=== PATIENT | male | born 1955 | race Caucasian/White ===

== ENCOUNTER 2024-02-27 01:19 | Emergency (ER) | payer OTHER ==
[2024-02-27] MEDS ORDERED: Morphine 4 MG/ML VIAL ONE (02:03)
[2024-02-27] MEDS ORDERED: Ondansetron PF 4 MG/2 ML Vial ONE (02:03)
[2024-02-27 02:31] LABS: #Basophils 0.04 10x3/uL (0.0-0.2); %Basophils 0.4 % (0.0-1.0); %Eosinophils 1.5 % (0.0-10.0); %Lymphocytes 20.6 % (21.0-51.0); %Monocytes 8.4 % (0.0-10.0); %Neutrophils 68.8 % (42.0-75.0); Hematocrit 35.3 % (42.0-52.0); Hemoglobin 12.3 g/dL (14.0-18.0); Mean Corpuscular HGB CONC 34.8 g/dL (32.0-36.0); Mean Corpuscular Volume 88.9 fL (78.0-98.0); Mean Platelet Volume 10.2 fL (7.4-10.4); Platelet Count 225 10x3/uL (130-400); RBC Distribution Width 14.2 % (11.5-14.5); Red Blood Cell (RBC) Count 3.97 mill/uL (4.70-6.10)
[2024-02-27] MEDS ORDERED: Lidocaine 2% 6 ML (Jelly) SYR ONE (02:34)
[2024-02-27 02:52] LABS: PTT 29.6 sec (22.9-36.1); Prothrombin Time 13.5 sec (12.0-14.7)
[2024-02-27 02:56] LABS: ALT (SGPT) 16 U/L (8-55); AST (SGOT) 23 U/L (5-34); Albumin 3.4 g/dL (3.4-4.8); Alkaline Phosphatase 68 U/L (40-110); Anion Gap 15 mmol/L (10-20); BUN (Urea Nitrogen) 19 mg/dL (8.4-25.7); Bilirubin, Total 0.7 mg/dL (0.2-1.2); Calc. Creatinine Clearance 0 mL/min (70-130); Calcium 8.8 mg/dL (7.8-10.44); Carbon Dioxide 19 mmol/L (23-31); Chloride 102 mmol/L (98-107); Estimated GFR 76; Globulin 3.5 g/dL (2.4-3.5); Glucose 95 mg/dL (80-115); Potassium 3.3 mmol/L (3.5-5.1); Protein, Total 6.9 g/dL (5.8-8.1); Sodium 133 mmol/L (136-145)
[2024-02-27 04:04] LABS: Bilirubin Negative (Negative); Blood, Urine 3+ (Negative); CAUTI Indications for Culture Acute Hematuria; Clarity Clear (Clear); Glucose, Urine (Dipstick) Normal (Negative); Ketone, Urine Negative (Negative); Leukocyte 75 Leu/uL (Negative); Nitrite Negative (Negative); Protein, Urine (Dipstick) 50 mg/dL (Neg-Trace); Squamous Epithelial None Seen HPF (0-3); Urobilinogen Normal mg/dL (Less than 2)
[2024-02-27 04:08] LABS: Bacteria/HPF 1+ HPF (None Seen); Specific Gravity, Urine 1.004 (1.002-1.036)
[2024-02-27 04:09] LABS: Urine Culture Reflex No No
== END 2024-02-27 04:34 ==
LOC: ERS 01:19
DX: R31.9 Hematuria, unspecified (principal); E11.9 Type 2 diabetes mellitus without complications; I10 Essential (primary) hypertension
CPT/HCPCS: 36415; 51702; 80053; 81001; 85025; 85610; 85730; 96374; 96375; J2272; J2405

== ENCOUNTER 2024-04-12 17:13 | Inpatient (IN) | payer OTHER ==
[2024-04-12 17:48] VITALS: BMI 25.2
[2024-04-12] MEDS ORDERED: Acetaminophen 650 MG Suppository PR PRN (18:01)
[2024-04-12] MEDS ORDERED: Acetaminophen 325 MG TAB PO PRN (18:01)
[2024-04-12] MEDS ORDERED: Ondansetron ODT 4 MG TAB PO PRN (18:01)
[2024-04-12] MEDS ORDERED: Ketorolac Tromethamine 30 MG (1 mL) VIAL IVP PRN (18:01)
[2024-04-12] MEDS ORDERED: Ondansetron PF 4 MG/2 ML Vial IVP PRN (18:01)
[2024-04-12] MEDS ORDERED: Albuterol 200 PUFF (6.7GM INHALER) INH PRN (18:55)
[2024-04-12] MEDS ORDERED: Nitroglycerin 0.4 MG TAB (25 Tab Bottle) SL PRN (18:55)
[2024-04-12] MEDS ORDERED: Preparation H Ointment 28 GM TUBE TOP PRN (19:09)
[2024-04-12] MEDS ORDERED: Electrolyte Replacement Protocol FS SCH (19:45)
[2024-04-12] MEDS: DULoxetine 60 MG CAP PO SCH (20:09)
[2024-04-12] MEDS: Famotidine 20 MG TAB PO SCH (20:09)
[2024-04-12] MEDS: Divalproex Sodium DR 500 MG TAB PO SCH (20:09)
[2024-04-12] MEDS: Ketorolac Tromethamine 30 MG (1 mL) VIAL IVP SCH (20:10)
[2024-04-12] MEDS: Atorvastatin Calcium 40 MG TAB PO SCH (20:10)
[2024-04-12] MEDS: Sodium Chloride 0.9% 1,000 ML IV SCH (20:11)
[2024-04-12] MEDS ORDERED: LANOLIN TOP SCH (21:00)
[2024-04-12] MEDS ORDERED: MINERAL OIL TOP SCH (21:00)
[2024-04-12] MEDS: Morphine 2 MG/ML VIAL SLOW IVP PRN (22:19)
[2024-04-12] MEDS: Triamcinolone 0.1% Cream 15 GM TUBE TOP SCH (22:54)
[2024-04-13] MEDS: traMADol HCl 50 MG TAB PO PRN (03:07)
[2024-04-13 05:41] LABS: #Basophils 0.04 10x3/uL (0.0-0.2); %Basophils 0.3 % (0.0-1.0); %Eosinophils 1.2 % (0.0-10.0); %Lymphocytes 10.4 % (21.0-51.0); %Monocytes 7.7 % (0.0-10.0); %Neutrophils 79.4 % (42.0-75.0); Hematocrit 32.5 % (42.0-52.0); Hemoglobin 10.7 g/dL (14.0-18.0); Mean Corpuscular HGB CONC 32.9 g/dL (32.0-36.0); Mean Corpuscular Hemoglobin 30.6 pg (27.0-31.0); Mean Corpuscular Volume 92.9 fL (78.0-98.0); Mean Platelet Volume 10.3 fL (7.4-10.4); Platelet Count 197 10x3/uL (130-400)
[2024-04-13 06:04] LABS: Anion Gap 11 mmol/L (10-20); BUN (Urea Nitrogen) 16 mg/dL (8.4-25.7); Calc. Creatinine Clearance 65 mL/min (70-130); Calcium 8.4 mg/dL (7.8-10.44); Carbon Dioxide 22 mmol/L (23-31); Chloride 108 mmol/L (98-107); Estimated GFR 65; Glucose 102 mg/dL (80-115); Potassium 4.2 mmol/L (3.5-5.1); Sodium 137 mmol/L (136-145)
[2024-04-13] MEDS: Mometasone 100 MCG/PUFF (1 INHALER) INH SCH (07:49)
[2024-04-13] MEDS ORDERED: (Dolutegravir Sodium [Tivicay] 50 MG Tablet) PO SCH (09:00)
[2024-04-13] MEDS: Enoxaparin 40 MG (0.4 mL) SYRINGE SC SCH (09:40)
[2024-04-13] MEDS: DULoxetine 30 MG CAP PO SCH (09:40)
[2024-04-13] MEDS: Aspirin 81 mg Enteric Coated Tablet PO SCH (09:40)
[2024-04-13] MEDS: cefTRIAXone\\ROCEPHIN 1 GM in Sodium Chloride 0.9% 100 ML IVPB SCH (14:59)
[2024-04-13] MEDS: FLU (Fluad Triv) TS24-25 (65UP)/MF59C/PF 45 MCG/0.5 ML Syringe IM ONE (18:12)
[2024-04-14 14:15] LABS: %CD4 (Helper/Inducer) 31.4 % (30.8-58.5); Absolute CD4 471 /uL (359-1519); Lymphocytes/Gated Cell Count 1.5 x10E3/uL (0.7-3.1); Total Lymphocyte 11 % (Not Estab.); WBC Total Count 14.1 x10E3/uL (3.4-10.8)
[2024-04-14 20:51] VITALS: BP 125/79; TEMP 98
[2024-04-16] MEDS ORDERED: Cefepime 1 GM VIAL ONE (02:15)
== END 2024-04-16 11:20 | DRG 698 ==
LOC: EEVIPCON 17:13 → SURG A 17:13
PROVIDERS: ADMIT Internal Medicine; ATTEND Internal Medicine
DX: T83.511A Infection and inflammatory reaction due to indwelling urethral catheter, initial encounter (principal); A41.52 Sepsis due to Pseudomonas; N39.0 Urinary tract infection, site not specified; I25.10 Atherosclerotic heart disease of native coronary artery without angina pectoris; I10 Essential (primary) hypertension; Z21 Asymptomatic human immunodeficiency virus [HIV] infection status; Z66 Do not resuscitate; E11.9 Type 2 diabetes mellitus without complications; E03.9 Hypothyroidism, unspecified; N40.0 Benign prostatic hyperplasia without lower urinary tract symptoms; K21.9 Gastro-esophageal reflux disease without esophagitis; E87.6 Hypokalemia; G47.33 Obstructive sleep apnea (adult) (pediatric); Z95.5 Presence of coronary angioplasty implant and graft; Z95.1 Presence of aortocoronary bypass graft; Z79.82 Long term (current) use of aspirin; Z79.02 Long term (current) use of antithrombotics/antiplatelets; Z79.899 Other long term (current) drug therapy; Z91.012 Allergy to eggs; Y84.6 Urinary catheterization as the cause of abnormal reaction of the patient, or of later complication, without mention of misadventure at the time of the procedure
CPT/HCPCS: 36415; 36416; 80048; 85025; 86361; 87077; 87086; 87186; J0696; J1650; J1885; J2272; J7030